=== PATIENT | female | born 1990 ===

== ENCOUNTER → 2016-09-09 | Outpatient (CLI) | payer BC | END | disposition home or self-care (01) | LOC: LAB 10:00 | DX: K29.50 Unspecified chronic gastritis without bleeding (principal) ==

== ENCOUNTER → 2016-10-28 | Outpatient (CLI) | payer BC | END | disposition home or self-care (01) | LOC: LAB 11:00 | DX: D13.1 Benign neoplasm of stomach (principal) | CPT/HCPCS: 88307 ==